=== PATIENT | male | born 1990 | race Caucasian/White ===

== ENCOUNTER 2017-04-20 15:34 | Emergency (ER) | END 2017-04-20 18:51 | disposition home or self-care (01) ==

== ENCOUNTER 2017-06-11 14:25 | Emergency (ER) | END 2017-06-11 16:41 | disposition home or self-care (01) ==

== ENCOUNTER 2017-09-08 15:07 | Emergency (ER) | END 2017-09-08 16:16 | disposition home or self-care (01) ==

== ENCOUNTER 2017-12-18 15:06 | Emergency (ER) | END 2017-12-18 17:43 | disposition home or self-care (01) ==

== ENCOUNTER 2018-06-02 05:49 | Emergency (ER) | payer OTHER ==
[~2018-06-02] VITALS: Ht 167.6 cm; Wt 70.8 kg
[~2018-06-02 05:49] MED LIST: ACET325T33 PO; CYCL10TA7 PO; MUPI22OI2 TOP; NAPR-985 PO; RANI150T35 PO; RANI150T5 PO; [UNRECOGNIZED DRUG - CODE] PO
[2018-06-02 05:53] VITALS: BP 127/77; PULSE 71; RESP 18; Ht 167.6 cm; Wt 70.8 kg
--- NOTE | 2018-06-02 08:11 | ERD ---
ER Documentation Chief Complaint Chief Complaint forehead laceration, states something fell on forehead around 0500 HPI 28-year-old male presenting with laceration to mid forehead. Patient states that this morning he woke up after he hit his head on the wall and sustained a laceration. He states that the site he had a previous cut and is worried that the wound open. This reveals injury happened about a year ago. He denies any loss of conscious. Denies vomiting. Denies visual changes. Denies medical problems. NKDA. Surgical history denies. Social history ROS All systems reviewed and are negative except as per history of present illness. Medications Home Meds Active Scripts Acetaminophen* (Tylenol*) 325 Mg Tablet, 1 TAB PO Q6 PRN for PAIN AND OR ELEVATED TEMP, #20 TAB Prov:ORVILLE ROTHMAN PA-C 12/18/17 Ranitidine Hcl* (Zantac*) 150 Mg Tablet, 150 MG PO BID PRN for EPIGASTRIC PAIN, #30 TAB Prov:ORVILLE ROTHMAN PA-C 12/18/17 Mupirocin* (Bactroban*) 2% -22 Gram Oint...g., 1 APPLIC TOP BID for 7 Days, EA Prov:MUNIR CORMIER PA-C 09/08/17 Cyclobenzaprine Hcl* (Cyclobenzaprine Hcl*) 10 Mg Tablet, 10 MG PO TID, #15 TAB Prov:MUNIR CORMIER PA-C 06/11/17 Naproxen* (Naprosyn*) 500 Mg Tablet, 500 MG PO BID PRN for PAIN AND/OR INFLAMMATION, #30 TAB Prov:MUNIR CORMIER PA-C 06/11/17 Ranitidine Hcl* (Ranitidine Hcl*) 150 Mg Tablet, 150 MG PO Q12, #30 TAB Prov:CODI LOPEZ MD 04/20/17 Belladonna Alkaloids-Phenobarb* (*) 16.2 Mg Tablet, 1 TAB PO QID PRN for SPASMS for 3 Days, #12 TAB Prov:CODI LOPEZ MD 04/20/17 Allergies Allergies: Coded Allergies: No Known Allergy (Unverified , 12/18/17) PMhx/Soc Medical and Surgical Hx: pt denies Medical Hx, pt denies Surgical Hx Hx Alcohol Use: No Hx Substance Use: No Hx Tobacco Use: No FmHx Family History: No diabetes, No coronary disease, No other Physical Exam Vitals Vital Signs Date Temp Pulse Resp B/P (MAP) Pulse Ox O2 O2 Flow FiO2 Time Delivery Rate 06/02/18 97.2 71 18 127/77 100 05:53 (94) Physical Exam GENERAL: The patient is well-appearing, well-nourished, in no acute distress HEENT: Atraumatic. Conjunctivae are pink. Pupils equal, round, and reactive to light. There is no scleral icterus. Tympanic membranes clear bilaterally. Oropharynx clear. CHEST: Clear to auscultation bilaterally. There are no rales, wheezes or rhonchi. HEART: Regular rate and rhythm. No murmurs, clicks, rubs or gallops. NEUROLOGIC: Alert and oriented. Cranial nerves II through XII intact. Motor strength in all 4 extremities with 5 out of 5 strength. Sensation grossly intact. Normal speech and gait. SKIN: 1 cm linear laceration to the medial aspect of the left eyebrow. No dehiscence of the wound. Some mild bleeding. Edges well approximated Procedures/MDM ER Course: Site cleaned with normal saline. Dermabond applied. Edges well approximated patient tolerated procedure well. MDM: 28-year-old male presenting with laceration to forehead. Wound was superficial and did not require sutures. Patient had Dermabond applied. I have low suspicion for neuro deficit. I have low suspicion for fracture. Patient is discharged stricter precautions and told to follow-up with primary care. Blank ent is told symptoms change or worsen to return immediately to the ER. All questions answered at discharge Departure Diagnosis: Primary Impression: Laceration Condition: Stable Patient Instructions: Laceration, Face (Skin Glue) Referrals: [facility] YOU HAVE RECEIVED A MEDICAL SCREENING EXAM AND THE RESULTS INDICATE THAT YOU DO NOT HAVE A CONDITION THAT REQUIRES URGENT TREATMENT IN THE EMERGENCY DEPARTMENT. FURTHER EVALUATION AND TREATMENT OF YOUR CONDITION CAN WAIT UNTIL YOU ARE SEEN IN YOUR DOCTORS OFFICE WITHIN THE NEXT 1-2 DAYS. IT IS YOUR RESPONSIBILITY TO MAKE AN APPOINTMENT FOR FOLOW-UP CARE. IF YOU HAVE A PRIMARY DOCTOR --you should call your primary doctor and schedule an appointment IF YOU DO NOT HAVE A PRIMARY DOCTOR YOU CAN CALL OUR PHYSICIAN REFERRAL HOTLINE AT IF YOU CAN NOT AFFORD TO SEE A PHYSICIAN YOU CAN CHOSE FROM THE FOLLOWING [facility] [address] [facility] [address] [facility] [facility] [address] [facility] [address] [facility]. [facility] [address] [facility]. [facility] [address] Additional Instructions: FOLLOW UP WITH YOUR PRIMARY CARE PHYSICIAN TOMORROW.Return to this facility if you are not improving as expected. PEDRO CHAMPION PA-C Jun 02, 2018 08:11
== END 2018-06-02 07:16 | disposition home or self-care (01) ==
LOC: FTE 05:49
DX: S01.81XA Laceration without foreign body of other part of head, initial encounter (principal); W22.01XA Walked into wall, initial encounter; Y92.9 Unspecified place or not applicable